=== PATIENT | female | born 1950 | race Caucasian/White ===

== ENCOUNTER → 2016-11-27 | Outpatient (CLI) | payer OTHER, MEDICARE ==
[~2016-11-27] MED LIST: CEPH500C PO; LEVO112T2 PO; LOSA1TAB38 PO; METO1TAB69 PO; OMEG10007 PO; TRIATAB3 PO
[2016-11-27 12:22] LABS: BASO % 0.4 %; BASO ABS # 0.03 K/uL (0-0.2); COMPLETE YES; EOS % 6.8 %; HEMATOCRIT 44.7 % (37-47); IG% 0.1 %; LYMPH % 31.1 %; LYMPH ABS # 2.23 K/uL (1.2-3.4); MEAN CELL VOLUME 95.3 fL (80-100); MEAN CORPUSCULAR HGB CONC 34.7 g/dl (32-36); MEAN PLATELET VOLUME 10.6 fL (7.4-10.4); MONO % 7.4 %; NEUT % 54.2 %; PLATELET COUNT 248 K/uL (130-400); RED BLOOD COUNT 4.69 M/uL (4.2-5.4); WHITE BLOOD COUNT 7.17 K/uL (4.8-10.8)
[2016-11-27 12:43] LABS: ALT/SGPT 56 U/L (12-78); AST/SGOT 26 U/L (15-37); BLOOD UREA NITROGEN 25 mg/dl (7-18); BUN/CREATININE RATIO 22.9 (10-20); CALCIUM 8.9 mg/dl (8.5-10.1); CARBON DIOXIDE 30 mmol/L (21-32); CHLORIDE 101 mmol/L (98-107); GLUCOSE 128 mg/dl (70-99); POTASSIUM 3.9 mmol/L (3.5-5.1); SODIUM 141 mmol/L (136-145); TRIGLYCERIDES 194 mg/dl (0-150); VERY LOW DENSITY LIPOPROT CALC 39 mg/dl
[2016-11-27 12:54] LABS: ALKALINE PHOSPHATASE 110 U/L (45-117); CHOLESTEROL 222 mg/dl (0-200); CHOLESTEROL/HDL RATIO 4.4; HDL CHOLESTEROL 51 mg/dl; LDL CHOLESTEROL CALCULATED 132 mg/dl
[2016-11-27 13:29] LABS: ESTIMATED AVERAGE GLUCOSE 126 mg/dl; HA1C FLAG Normal (Normal)
== END | disposition home or self-care (01) ==
LOC: C.LABBFT 09:51
PROVIDERS: ATTEND Internal Medicine
DX: R73.01 Impaired fasting glucose (principal)

== ENCOUNTER → 2017-02-21 | Outpatient (CLI) | payer OTHER, MEDICARE ==
[~2017-02-21] MED LIST changes: +METO100T44 PO; -METO1TAB69 PO
== END | disposition home or self-care (01) ==
LOC: C.PAPS 10:52
PROVIDERS: ATTEND Obstetrics & Gynecology
DX: Z12.4 Encounter for screening for malignant neoplasm of cervix (principal); R87.616 Satisfactory cervical smear but lacking transformation zone

== ENCOUNTER → 2017-05-18 | Outpatient (CLI) | payer OTHER, MEDICARE ==
[~2017-05-18] MED LIST changes: -CEPH500C PO; -METO100T44 PO; +METO1TAB69 PO
[2017-05-18 13:08] LABS: ALT/SGPT 48 U/L (12-78); AST/SGOT 24 U/L (15-37); BLOOD UREA NITROGEN 21 mg/dl (7-18); BUN/CREATININE RATIO 18.9 (10-20); CALCIUM 9.5 mg/dl (8.5-10.1); CARBON DIOXIDE 29 mmol/L (21-32); CHLORIDE 102 mmol/L (98-107); CHOLESTEROL 250 mg/dl (0-200); GLUCOSE 121 mg/dl (70-99); SODIUM 139 mmol/L (136-145); TRIGLYCERIDES 230 mg/dl (0-150); VERY LOW DENSITY LIPOPROT CALC 46 mg/dl
[2017-05-18 13:15] LABS: ESTIMATED AVERAGE GLUCOSE 134 mg/dl; HA1C FLAG Normal (Normal)
[2017-05-18 13:18] LABS: ALKALINE PHOSPHATASE 100 U/L (45-117); CHOLESTEROL/HDL RATIO 5.7; HDL CHOLESTEROL 44 mg/dl; LDL CHOLESTEROL CALCULATED 160 mg/dl
== END | disposition home or self-care (01) ==
LOC: C.LABBFT 08:06
PROVIDERS: ATTEND Internal Medicine
DX: E78.00 Pure hypercholesterolemia, unspecified (principal); E03.9 Hypothyroidism, unspecified; R73.01 Impaired fasting glucose; I10 Essential (primary) hypertension

== ENCOUNTER → 2017-06-11 | Outpatient (CLI) | payer OTHER, MEDICARE | END | disposition home or self-care (01) | LOC: C.PATHSPEC 17:23 | PROVIDERS: ATTEND Plastic Surgery | DX: L72.0 Epidermal cyst (principal) ==

== ENCOUNTER → 2017-11-27 | Outpatient (CLI) | payer OTHER, MEDICARE ==
[~2017-11-27] MED LIST changes: +METO100T44 PO; -METO1TAB69 PO
[2017-11-27 12:54] LABS: HEMOGLOBIN A1C 6.4 % (4.5-5.6)
[2017-11-27 13:13] LABS: ALBUMIN 3.8 gm/dl (3.4-5.0); ALKALINE PHOSPHATASE 104 U/L (45-117); ALT/SGPT 43 U/L (12-78); AST/SGOT 21 U/L (15-37); BLOOD UREA NITROGEN 25 mg/dl (7-18); CALCIUM 9.6 mg/dl (8.5-10.1); CARBON DIOXIDE 31 mmol/L (21-32); CHOLESTEROL 216 mg/dl (0-200); GLUCOSE 127 mg/dl (70-99); POTASSIUM 3.9 mmol/L (3.5-5.1); SODIUM 134 mmol/L (136-145); TOTAL PROTEIN 7.2 gm/dl (6.4-8.2)
[2017-11-27 13:23] LABS: LDL CHOLESTEROL CALCULATED 125 mg/dl
== END | disposition home or self-care (01) ==
LOC: C.LABBFT 08:56
PROVIDERS: ATTEND Internal Medicine
DX: E78.00 Pure hypercholesterolemia, unspecified (principal); R73.01 Impaired fasting glucose; E03.9 Hypothyroidism, unspecified

== ENCOUNTER → 2017-12-11 | Outpatient (CLI) | payer OTHER, MEDICARE ==
[~2017-12-11] MED LIST changes: +OPTIRAY 320 IV PRN
--- NOTE | 2017-12-11 16:03 | DIAGNOSTIC IMAGING REPORT ---
CT OF THE ABDOMEN AND PELVIS WITH CONTRAST CLINICAL HISTORY: Left lower quadrant pain and bloating. Diverticulitis. COMPARISON STUDY: CT of the abdomen March 14, 2013. TECHNIQUE: Following IV administration of 93 mL of Optiray-320, axial images of the abdomen and pelvis were obtained from the lung bases to the proximal femurs. Images were reviewed in the axial, sagittal, and coronal planes. IV contrast was administered without complication. A dose lowering technique was utilized adhering to the principles of ALARA. Oral contrast was administered. CT DOSE: 987.05 mGycm FINDINGS: Visualized portions of the lower chest demonstrate innumerable small pulmonary nodules which are similar to CT of March 14, 2013. A few hepatic lesions which demonstrate nodular peripheral enhancement are unchanged since prior exams and consistent with hemangiomas. There is no biliary or pancreatic ductal dilatation. Apparent postoperative findings involving the pancreatic body and tail are unchanged. The postoperative appearance is similar to prior exam. Note is made of adenomyomatosis of the gallbladder fundus. There is no evidence for acute cholecystitis. There is no peripancreatic infiltration. No enlarged abdominal or pelvic lymph nodes are noted. A small hiatal hernia is present. There is no hydronephrosis. The spleen, adrenal glands and pancreas are unremarkable. Tiny bilateral adrenal nodules are unchanged. These are benign. There is no hydronephrosis. The caliber and wall thickness of small and large bowel are normal. The appendix is normal. A suspected 1.6 cm fundal fibroid is noted. There is sigmoid diverticulosis without evidence for acute diverticulitis. The ovaries are not enlarged. There are no suspicious osseous lesions. IMPRESSION: 1. No acute process within the abdomen or pelvis. 2. Sigmoid diverticulosis without evidence for acute diverticulitis. 3. No change in innumerable pulmonary nodules within visualized portions of the lower lungs since CT of March 14, 2013. 4. Stable appearance of the pancreas with apparent postsurgical changes. Electronically signed by: Montrell Cano M.D. 12/11/2017 4:01 PM Dictated Date/Time: 12/11/2017 3:50 PM
== END | disposition home or self-care (01) ==
LOC: C.CTS 15:08
PROVIDERS: ATTEND Internal Medicine
DX: K57.30 Diverticulosis of large intestine without perforation or abscess without bleeding (principal); R10.32 Left lower quadrant pain; R91.8 Other nonspecific abnormal finding of lung field

== ENCOUNTER → 2017-12-14 | Outpatient (CLI) | payer OTHER, MEDICARE ==
[~2017-12-14] MED LIST changes: -OPTIRAY 320 IV PRN
== END | disposition home or self-care (01) ==
LOC: C.LABBFT 10:24
PROVIDERS: ATTEND Internal Medicine
DX: G62.9 Polyneuropathy, unspecified (principal)

== ENCOUNTER 2018-01-26 05:03 | Emergency (ER) | payer OTHER, MEDICARE ==
[~2018-01-26] VITALS: Ht 175.3 cm; Wt 92.2 kg
[2018-01-26 05:08] VITALS: TEMP 36.4; Ht 175.3 cm; Wt 92.2 kg
[2018-01-26 05:35] VITALS: BP 132/72; PULSE 60; O2SAT 99
[2018-01-26] MEDS ORDERED: NAPR-1169 PO (06:19)
--- NOTE | 2018-01-26 08:06 | EMERGENCY ROOM VISIT NOTE ---
History Report prepared by Pierce: Fiordaliza Isidro Under the Supervision of: Dr. Soledad Rivas D.O. First contact with patient: 05:16 Chief Complaint: BLEEDING Stated Complaint: BLEEDING FROM BOIL LIKE History of Present Illness The patient is a 67 year old female who presents to the Emergency Room with complaints of an episode of bleeding starting prior to arrival. The patient states that she noticed a hard area in right groin two days ago. This was noted to be slightly painful. She reports that there was a tiny tinge of blood there last night, but woke up this morning and there was blood everywhere. She reports that the blood was on her pajamas, on the sheets, and in the toilet. The patient denies ever having any abscess in her groin area before. The patient denies being a diabetic. Source of History: patient Onset: prior to arrival Position: other (global) Quality: other (bleeding) Timing: other (episode) Note: The patient complains of a hard lump. Review of Systems See HPI for pertinent positives & negatives. A total of 10 systems reviewed and were otherwise negative. Past Medical & Surgical The patient denies diabetes She has a history of hypertension and hypothyroidism. Family History No pertinent family history Social History Smoking Status: Never Smoker Marital Status: Housing Status: lives with family Current/Historical Medications Scheduled Fish Oil ([place]-3), 2,400 MG PO DAILY Levothyroxine Sodium (Synthroid), 112 MCG PO DAILY Losartan Potassium (Cozaar), 100 MG PO DAILY Metoprolol Succ (Toprol Xl) (Toprol-Xl ), 100 MG PO DAILY Triamterene/Hctz (Triamterene/Hctz 37.5-25MG), 1 TAB PO BID Scheduled PRN Naproxen (Naprosyn), 500 MG PO BID PRN for Pain Allergies Coded Allergies: Molds and Smuts (Verified Allergy, Unknown, ., 10/27/15) Statins (Verified Allergy, Unknown, ELEVATED LFT'S, 10/27/15) Uncoded Allergies: MOLDS (Allergy, Unknown, 12/25/02) Physical Exam Vital Signs Date Time Temp Pulse Resp B/P (MAP) Pulse Ox O2 Delivery O2 Flow Rate FiO2 01/26/18 05:35 60 16 132/72 99 Room Air 01/26/18 05:08 36.4 68 18 147/85 97 Room Air Physical Exam Perineum: There was a palpable area of induration and probable abscess just to the right of the posterior labia. There was an opening the size of a match head which was draining a serosanguineous fluid with some possible pus. There was no surrounding erythema to suggest cellulitis. There is no evidence of Laura's gangrene. This did not involve the labia. There is no discharge noted from the vagina or rectum. Medical Decision & Procedures ED Course 0518: Past medical records reviewed. The patient was evaluated in room B10. A complete history and physical exam was performed. I discussed possible causes of this drainage and suggested a treatment plan. She verbalized agreement of the treatment plan. The patient was discharged home. Medical Decision The patient is a 67 year old female who presents to the Emergency Room with complaints of an episode of bleeding starting prior to arrival. Differential diagnoses include Bartholin cyst, abscess of the perineum, rectal fistula, perirectal abscess. This is a 59-year-old female patient who presents to the emergency department with a painful area in her perineum that is now draining a bloody fluid. It appears that she has a skin abscess in that area with an opening that is successfully draining both blood and a small amount of pus. There are no surrounding cellulitic changes. There is some slight induration which is painful to palpation. I encouraged the patient to do warm soaks or sitz baths and monitor this area closely. I discouraged extended periods of sitting or standing. She was encouraged to return to the emergency department immediately if she developed increased pelvic pain or rectal pain. I also encouraged her to come back if she developed a fever. We talked about the possibility of a fistula but I do not believe that is what has occurred here I believe that this is a skin abscess that is currently draining. Medication Reconcilliation Current Medication List: was personally reviewed by me Blood Pressure Screening Patient's blood pressure: Elevated blood pressure Blood pressure disposition: Elevated BP felt to be situational Impression Primary Impression: Perineal abscess Scribe Attestation The scribe's documentation has been prepared under my direction and personally reviewed by me in its entirety. I confirm that the note above accurately reflects all work, treatment, procedures, and medical decision making performed by me. Departure Information Dispostion Home / Self-Care Referrals Jorge Mi M.D. (PCP) Forms HOME CARE DOCUMENTATION FORM, IMPORTANT VISIT INFORMATION Patient Instructions My [facility] [place] [facility] [employer] Additional Instructions Rest. Avoid sitting or standing for long periods of time. Do sitz bath twice a day Follow up with obstetrics gyn on Sunday for a recheck. Return here to the ER if you develop worsening symptoms like fever or pelvic pain
== END 2018-01-26 06:20 | disposition home or self-care (01) ==
LOC: C.EDB 05:04
DX: L02.215 Cutaneous abscess of perineum (principal); I10 Essential (primary) hypertension; E03.9 Hypothyroidism, unspecified; Z79.899 Other long term (current) drug therapy

== ENCOUNTER → 2018-03-18 | Outpatient (CLI) | payer OTHER, MEDICARE ==
[~2018-03-18] MED LIST changes: +NAPR-1169 PO
--- NOTE | 2018-03-19 15:13 | MAMMOGRAPHY REPORT ---
BILATERAL DIGITAL SCREENING MAMMOGRAM TOMOSYNTHESIS WITH CAD: 03/18/2018 CLINICAL HISTORY: Routine screening. Patient has no complaints. TECHNIQUE: Breast tomosynthesis in addition to standard 2D mammography was performed. Current study was also evaluated with a Computer Aided Detection (CAD) system. COMPARISON: Comparison is made to exams dated: 03/15/2017 mammogram, 02/02/2016 mammogram, 01/12/2015 dirk mogram, 11/20/2013 mammogram, 11/15/2012 mammogram, and 11/14/2011 mammogram - [facility] . BREAST COMPOSITION: There are scattered areas of fibroglandular density in both breasts. FINDINGS: The parenchymal pattern is unchanged. No developing mass, architectural distortion or clus ter of suspicious microcalcifications is seen in either breast. IMPRESSION: ACR BI-RADS CATEGORY 2: BENIGN There is no mammographic evidence of malignancy. A 1 year screening mammogram is recommended. The pa tient will receive written notification of the results. Approximately 10% of breast cancers are not detected with mammography. A negative mammographic report should not delay biopsy if a clinically suggestive mass is present. Chrissy Wallis M.D. ay/:03/18/2018 16:09:17 Computational Linguist: Sabine RODAS(Ayanna)(Nahun), [facility] letter sent: Normal 1/2 BI-RADS Code: ACR BI-RADS Category 2: Benign
== END | disposition home or self-care (01) ==
LOC: C.MAMM 09:25
PROVIDERS: ATTEND Obstetrics & Gynecology
DX: Z12.31 Encounter for screening mammogram for malignant neoplasm of breast (principal); Z91.040 Latex allergy status

== ENCOUNTER → 2018-05-31 | Outpatient (CLI) | payer OTHER, MEDICARE ==
[~2018-05-31] MED LIST changes: -NAPR-1169 PO; +NAPR-22 PO
[2018-05-31 12:46] LABS: HEMOGLOBIN A1C 6.3 % (4.5-5.6)
[2018-05-31 13:07] LABS: ALBUMIN 3.6 gm/dl (3.4-5.0); ALKALINE PHOSPHATASE 105 U/L (45-117); ALT/SGPT 36 U/L (12-78); AST/SGOT 16 U/L (15-37); BLOOD UREA NITROGEN 33 mg/dl (7-18); CALCIUM 8.9 mg/dl (8.5-10.1); CARBON DIOXIDE 30 mmol/L (21-32); CHOLESTEROL 226 mg/dl (0-200); CREATININE 1.07 mg/dl (0.60-1.20); GLUCOSE 154 mg/dl (70-99); LDL CHOLESTEROL CALCULATED 152 mg/dl; POTASSIUM 3.6 mmol/L (3.5-5.1); SODIUM 137 mmol/L (136-145); TOTAL PROTEIN 7.2 gm/dl (6.4-8.2)
== END | disposition home or self-care (01) ==
LOC: C.LABBFT 08:12
PROVIDERS: ATTEND Internal Medicine
DX: E78.00 Pure hypercholesterolemia, unspecified (principal); E03.9 Hypothyroidism, unspecified; R73.01 Impaired fasting glucose

== ENCOUNTER 2020-07-14 06:44 | Observation (INO) ==
--- NOTE | 2020-07-02 13:35 | PAT Medication Instructions ---
Medication Instructions Date of Service July 02, 2020 Home Medications Medication Instructions Recorded losartan 100 mg tablet 100 mg PO DAILY #90 tab 10/13/19 levothyroxine 100 mcg tablet 100 mcg PO DAILY #90 tab 03/29/20 metoprolol succinate 100 mg 100 mg PO DAILY #90 tab 03/29/20 tablet,extended release 24 hr triamterene 37.5 1 tab PO BID #180 tab 03/29/20 mg-hydrochlorothiazide 25 mg tablet losartan 100 mg tablet 100 mg PO DAILY levothyroxine 100 mcg tablet 100 mcg PO DAILY metoprolol succinate 100 mg tablet,extended release 24 hr 100 mg PO DAILY triamterene 37.5 mg-hydrochlorothiazide 25 mg tablet 1 tab PO BID omega-3 fatty acids-fish oil [[place] 3 Fish Oil] 2 cap PO QAM STOP taking 2 weeks before surgery (or as soon as possible if surgery is within 2 weeks) omega-3 fatty acids-fish oil [[place] 3 Fish Oil] 2 cap PO QAM DO NOT take the morning of surgery losartan 100 mg tablet 100 mg PO DAILY triamterene 37.5 mg-hydrochlorothiazide 25 mg tablet 1 tab PO BID Take morning of surgery With a small sip of water, OTHERWISE NOTHING TO EAT OR DRINK AFTER MIDNIGHT: levothyroxine 100 mcg tablet 100 mcg PO DAILY metoprolol succinate 100 mg tablet,extended release 24 hr 100 mg PO DAILY Other Notes If you have any questions please call us at [phone] or [phone] or [phone] or [phone]
--- NOTE | 2020-07-05 13:19 | PAT Medication Instructions ---
Medication Instructions Date of Service July 05, 2020 Home Medications Medication Instructions Recorded levothyroxine 100 mcg tablet 100 mcg PO DAILY #90 tab 03/29/20 triamterene 37.5 1 tab PO BID #180 tab 20 mg-hydrochlorothiazide 25 mg tablet levothyroxine 100 mcg tablet 100 mcg PO QAM triamterene 37.5 mg-hydrochlorothiazide 25 mg tablet 1 tab PO BID omega-3 fatty acids-fish oil [[place] 3 Fish Oil] 2 cap PO QAM losartan 100 mg PO QPM metoprolol succinate 100 mg PO QPM STOP taking 2 weeks before surgery If surgery is within 2 weeks, stop taking as soon as possible. omega-3 fatty acids-fish oil [[place] 3 Fish Oil] 2 cap PO QAM DO NOT take the morning of surgery triamterene 37.5 mg-hydrochlorothiazide 25 mg tablet 1 tab PO BID Take morning of surgery With a small sip of water, OTHERWISE NOTHING TO EAT OR DRINK AFTER MIDNIGHT: levothyroxine 100 mcg tablet 100 mcg PO QAM Take evening before surgery triamterene 37.5 mg-hydrochlorothiazide 25 mg tablet 1 tab PO BID losartan 100 mg PO QPM metoprolol succinate 100 mg PO QPM Other Notes If you have any questions please call us at [phone] or [phone] or [phone] or [phone]
--- NOTE | 2020-07-05 13:28 | Anesthesiology Consultation ---
Date of Service July 05, 2020 Assessment & Plan (1) Encounter for pre-operative examination: COVID Status: As of 07/05 assessment, patient denies travel to endemic area, known exposure/sick contacts, or symptoms of COVID19. Patient instructed that they and their household members must follow strict social distancing guidelines, wear a mask in public and avoid travel for 14 days prior to surgery. Preoperative COVID19 testing to be completed prior to surgery per surgeon's arra ngements. Patient made aware to self-isolate as much as possible between COVID testing and surgery. PCP Clearance 06/16/20 = "Reviewed recent labs with patient, stable and acce ptable. IFG, hypothyroidism, hypertension and hypercholesterolemia seem stable. No medical contraindication to upcoming planned right total knee arthroplasty" Chart Review Chart Review: Acceptable Risk for Surgery and Patient seen in Pre Admission Testing Teaching & Discussion Instructed NPO after midnight before surgery, except medications with 15 cc of water. Medication instructions provided according to the PAT guidelines. History Surgery Operation Date: 07/14/20 08:50 Proposed Procedures p Right Total Knee Arthroplasty - Alex Alexander MD Height/Weight Height: 5 ft 9.5 in Weight: 84 kg Allergies Allergy/AdvReac Type Severity Reaction Status Date / Time ezetimibe [From Zetia] Allergy Intermediate ELEVATED Verified 07/01/20 09:22 LFTS Zeymdyl-Kxg-Pcu Reductase Allergy Intermediate ELEVATED Verified 07/01/20 09:22 Inhibitor LFT'S mold Allergy Mild CONGESTION Verified 07/01/20 09:22 lisinopril Allergy Unknown PT DOES Verified 07/01/20 09:23 NOT RECOGNIZE ALLERGY Medications Home Medications Medication Instructions Recorded Confirmed Last Taken levothyroxine 100 mcg tablet 100 mcg PO DAILY #90 tab 03/29/20 07/01/20 Unknown triamterene 37.5 1 tab PO BID #180 tab 03/29/20 07/01/20 Unknown mg-hydrochlorothiazide 25 mg tablet omega-3 fatty acids-fish oil 2 cap PO QAM 07/01/20 07/01/20 Unknown [[place] 3 Fish Oil] losartan 100 mg PO QPM 07/05/20 07/05/20 Unknown metoprolol succinate 100 mg PO QPM 07/05/20 07/05/20 Unknown Past Medical History Medical History Cystadenoma of pancreas BENIGN Degenerative disc disease Environmental allergies Hypercholesterolemia Hypertension Hypothyroidism Lung nodules BENIGN (MONITORED IN PAST) Osteoarthritis Prediabetes Exercise / Class Metabolic Activity II 4-5 Yardwork/Stairs/Walk up hill Past Family History Family History Mother Cancer Father Gastric cancer Brother Cardiac disorder Family/Other Hypertension Denies family history of Ovarian cancer Breast cancer Past Surgical History Surgical History History of colonoscopy (~08/05/13) History of lumbar discectomy History of pancreatic surgery 2000- tumor resected History of tonsillectomy [place] teeth removed Past Anesthesia History No Hx of Anesthesia Complications and No Family Hx of Anesthesia Complications History of PONV No Hx of PONV and No Hx of Motion Sickness Social History Smoking Status: Never smoker Do You Dip or Chew Tobacco: No Hx Alcohol Use: Yes alcohol intake frequency: holidays/special occasions only Hx Substance Use: No Review of Systems Pt denies any recent chest pain, shortness of breath, palpitations, cough, fever, URI, or uncontrolled acid reflux. Physical Exam Vital Signs BP: 121/70 P: 52bpm SPO2: 95% RA T: 98.9 F R: 16 Constitutional Anxious. ENMT Mouth: + dental restorations (Crowns on molars); no chipped teeth and no loose teeth Thyromental Distance: > or= 3.5 Finger Breadths Mallampati Class: I Neck normal visual inspection and + limited neck extension (mildly) Respiratory normal respiratory effort Auscultation: lungs clear to auscultation bilaterally Cardiovascular Rate/Rhythm: regular rhythm and + bradycardic Heart Sounds: no murmur Extremities: no edema Testing Laboratory Results 07/05/20 13:40 07/05/20 13:40 PT 11.0 Seconds (9.0-12.0) 07/05/20 13:40 INR 1.0 (0.9-1.1) 07/05/20 13:40 APTT 28.9 Seconds (21.0-31.0) 07/05/20 13:40 Urine Color Yellow 07/05/20 13:40 Urine Appearance Clear (Clear) 07/05/20 13:40 Urine pH 5.5 (4.5-7.5) 07/05/20 13:40 Ur Specific [place] 1.014 (1.000-1.030) 07/05/20 13:40 Urine Protein Negative (Negative) 07/05/20 13:40 Urine Glucose (UA) Negative (Negative) 07/05/20 13:40 Urine Ketones Negative (Negative) 07/05/20 13:40 Urine Nitrite Negative (Negative) 07/05/20 13:40 Ur Leukocyte Esterase Trace (Negative) H 07/05/20 13:40 Urine WBC (Auto) 1-5 /hpf (0-5) 07/05/20 13:40 Urine RBC (Auto) 0-4 /hpf (0-4) 07/05/20 13:40 U Hyaline Cast (Auto) 0 /lpf (0-5) 07/05/20 13:40 U Epithel Cells (Auto) >30 /lpf (0-5) H 07/05/20 13:40 Urine Bacteria (Auto) Negative (Negative) 07/05/20 13:40 Blood Type O Negative 07/05/20 13:40 Antibody Screen NEGATIVE 07/05/20 13:40 Electrocardiogram Date: 07/05/20 Findings: + SB @ (55bpm with 1st degree AV block) Left anterior fascicular block. Compared with EKG of 08/22/2001, RI interval has increased, left anterior fascicular block is now present. Chest X-Ray Date: 07/05/20 Findings: + NAD
--- NOTE | 2020-07-05 14:18 | XRay Report ---
XR chest Pre-admission PA/Lat CLINICAL HISTORY: Preoperative chest COMPARISON STUDY: Chest CT performed July 2014 FINDINGS: The cardiac and mediastinal contours are normal. There is no evidence of focal pulmonary co nsolidation. There is no evidence of failure. No pleural effusions are visualized.[ IMPRESSION: No active disease in the chest. ACT 112: Negative or not required by law. Electronically signed by: Phil Turcios M.D. 07/05/2020 2:16 PM
[2020-07-05 14:40] LABS: Basophils # (auto) 0.02 K/uL (0-0.2); Basophils % (auto) 0.3 %; Eosinophils % (auto) 4.1 %; Hematocrit (blood only) 45.6 % (37-47); Hemoglobin 15.6 g/dL (12.0-16.0); Immature Granulocytes # (auto) 0.01 K/uL (0.00-0.02); Immature Granulocytes % (auto) 0.1 %; Lymphocytes # (auto) 1.96 K/uL (1.2-3.4); Lymphocytes % (auto) 26.6 %; Mean Corpuscular Hemoglobin 32.8 pg (25-34); Mean Corpuscular Hgb Conc 34.2 g/dL (32-36); Mean Platelet Volume 10.5 fL (7.4-10.4); Monocytes # (auto) 0.57 K/uL (0.11-0.59); Monocytes % (auto) 7.7 %; Neutrophils % (auto) 61.2 %; Platelet Count 222 K/uL (130-400); RDW Coefficient of Variation 12.8 % (11.5-14.5); RDW Standard Deviation 44.4 fL (36.4-46.3); Red Blood Count 4.75 M/uL (4.2-5.4); White Blood Count 7.36 K/uL (4.8-10.8)
[2020-07-05 14:41] LABS: Appearance Urine Clear (Clear); Bacteria Urine Automated Negative (Negative); Bilirubin Urine Negative (Negative); Blood Urine Negative (Negative); Cast Urine Automated 0 /lpf (0-5); Color Urine Yellow; Epithelial Cell Urine Auto >30 /lpf (0-5); Glucose Urine UA Negative (Negative); Ketones Urine Negative (Negative); Leukocyte Esterase Urine Trace (Negative); Nitrite Urine Negative (Negative); Protein Urine Negative (Negative); RBC Urine Automated 0-4 /hpf (0-4); Specific Gravity Urine 1.014 (1.000-1.030); Urobilinogen Urine Negative (Negative); pH Urine 5.5 (4.5-7.5)
[2020-07-05 14:46] LABS: BUN Creatinine Ratio 26.7 (10-20); Calcium 8.9 mg/dl (8.5-10.1); Creatinine Clr Calc Pharmacy 66.2 ml/min; Est GFR (African American) 73.6; Est GFR (Non-African American) 63.5; Potassium 3.6 mmol/L (3.5-5.1)
[2020-07-05 14:50] LABS: Partial Thromboplastin Time 28.9 Seconds (21.0-31.0)
--- NOTE | 2020-07-05 15:35 | Electrocardiogram Report ---
Test Reason : Blood Pressure : / mmHG Vent. Rate : 055 BPM Atrial Rate : 055 BPM P-R Int : 218 ms QRS Dur : 086 ms QT Int : 466 ms P-R-T Axes : 078 -57 048 degrees QTc Int : 445 ms Sinus bradycardia with 1st degree A-V block Left anterior fascicular block Abnormal ECG When compared with ECG of 22-AUG-2001 16:08, NM interval has increased Left anterior fascicular block is now Present Confirmed by Aubrey Llamas ([id number]) on 07/05/2020 3:34:39 PM Referred By: Alex Alexander Confirmed By:Aubrey Llamas
--- NOTE | 2020-07-13 10:33 | History & Physical Report ---
Date of Service July 13, 2020 Assessment & Plan (1) Right knee DJD: Postoperative prescription for Percocet and Coumadin will be provided at discharge from the hospital. Anticipate discharge to home with home health services. She has already seen her PCP for medical clearance. Preoperative lab work, EKG, and chest x-ray have been ordered for today. Preoperative COVID testing has also been ordered. The patient is aware of the COVID-19 risks associated with surgery. She is currently asymptomatic of any COVID-19 symptoms. Nasal swab testing will be obtained prior to surgery. PDMP was checked and there are no concerning findings. Postoperative surgical visit has been made for 07/29 at 1:30 p.m. History of Present Illness Chief Complaint: Right knee pain Primary Care Provider: Jorge Mi MD This 70-year-old white female presents today for a longstanding history of right knee pain. She is scheduled to undergo a right knee total knee arthroplasty on 07/14/2020. She has been seen in the office for several years with reasonable medical management using cortisone injections and viscosupplementation injections in the right knee. Pain has become worse with time. She feels the injections are no longer helping. She is having difficulty with ambulation. Pain is worse with weightbearing. Pain is affecting her ADLs. She denies any catching or locking. No buckling. She does note a deformity of her knees that seems to be advancing with time. Preoperative imaging has been obtained. She elects to proceed with surgical intervention in hopes of improving her function. Allergies Allergy/AdvReac Type Severity Reaction Status Date / Time ezetimibe [From Zetia] Allergy Intermediate ELEVATED Verified 07/01/20 09:22 LFTS Wwkyxsf-Pky-Efy Reductase Allergy Intermediate ELEVATED Verified 07/01/20 09:22 Inhibitor LFT'S mold Allergy Mild CONGESTION Verified 07/01/20 09:22 lisinopril Allergy Unknown PT DOES Verified 07/01/20 09:23 NOT RECOGNIZE ALLERGY Home Medications Home Medications Medication Instructions Recorded Confirmed Type levothyroxine 100 mcg tablet 100 mcg PO DAILY #90 tab 03/29/20 07/01/20 Rx triamterene 37.5 1 tab PO BID #180 tab 03/29/20 07/01/20 Rx mg-hydrochlorothiazide 25 mg tablet omega-3 fatty acids-fish oil 2 cap PO QAM 07/01/20 07/01/20 History [[place] 3 Fish Oil] losartan 100 mg PO QPM 07/05/20 07/05/20 History metoprolol succinate 100 mg PO QPM 07/05/20 07/05/20 History Past Med/Surg History Medical History Cystadenoma of pancreas BENIGN Degenerative disc disease Environmental allergies Hypercholesterolemia Hypertension Hypothyroidism Lung nodules BENIGN (MONITORED IN PAST) Osteoarthritis Prediabetes Surgical History History of colonoscopy (~08/05/13) History of lumbar discectomy History of pancreatic surgery 2000- tumor resected History of tonsillectomy [place] teeth removed Family History Mother Cancer Father Gastric cancer Brother Cardiac disorder Family/Other Hypertension Denies family history of Ovarian cancer Breast cancer Social History Smoking Status: Never smoker Second Hand Exposure: Yes ( A CHILD); Hx Alcohol Use: Yes Hx Substance Use: No Preferred Language: Belarusian Sole Layer Hand Required: No Beliefs That Will Affect Care: None marital status: Current Living Situation: Spouse current occupational status: retired Feels Safe at Home: Yes Physical Activity Frequency: Other Physical Activity Frequency Comment: regularly Sunscreen Use: Yes Review of Systems Review of Systems: All systems reviewed & are unremarkable except as noted in HPI & below A total of 10 systems were reviewed. Physical Exam Physical Exam: Vitals: Height 174 cm, weight 84 kg. BMI 27.7, temperature 36.3 oral, BP 140/68, pulse is 51, O2 sat 98% on room air. General: Well-deve loped, well-nourished, elderly white female in no acute distress. Sitting in a chair. Alert and oriented. Skin: Warm and dry with good turgor. No rashes or lesions. No ecchymosis or erythema. HEENT: Normocephalic, atraumatic. Eyes: PERRLA, EOMI. Nares and oropharynx exams deferred due to COVID precautions. Heart: Bradycardic, regular rhythm, no MGR. Lungs: Clear to auscultation bilaterally, no crackles, rhonchi or wheezing, good air movement. Abdomen: Bowel sounds present x4, soft, nontender. No organomegaly. No masses. Musculoskeletal: Right knee evaluation reveals no intraarticular effusion. No redness or warmth. Full terminal extension. Flexion to only 95 degrees. Strength is 5/5 with fair quad tone. Stable collateral ligaments. No defect in the patellar tendon or quadriceps tendon. No palpable crepitus with motion. She does have a valgus stance. Ambulates with a slightly antalgic gait without a cane. Neurologic: Gross sensation is intact across both lower extremities by soft touch. Peripheral pulses are 2+. Results & Data Results & Data ([facility]) Diagnostic Findings Radiographic imaging previously obtained shows endstage DJD of the right knee with periarticular osteophytes, subchondral sclerosis, and joint space narrowing, all present.
[~2020-07-14 06:44] MED LIST changes: +CEFAZOLIN 2000MG 2,000 MG/15 ML SYR IV SCH; -LEVO112T2 PO; -LOSA1TAB38 PO; +LR 500ML BOLUS, THEN 15ML/HR IV SCH; +LR 60ML/HR IV SCH; -METO100T44 PO; -NAPR-22 PO; -OMEG10007 PO; +ROPIVACAINE 0.5% HCL/PF 150 MG, BUPIVACAINE 0.5% MPF 30 ML, EPINEPHrine 0.15 MG, Ketoro... INFIL SCH; +TRANEXAMIC ACID 1,000 MG **IV Pre-op IV SCH; -TRIATAB3 PO
--- NOTE | 2020-07-14 06:45 | History & Physical Bridge Note ---
Date of Service July 14, 2020 History & Physical Bridge Note I have examined the patient, reviewed the History & Physical and in the interval since the performance of the History & Physical I have noted the following changes of clinical significance: covid screen negative.no changes noted
--- NOTE | 2020-07-14 06:56 | History & Physical Bridge Note ---
Date of Service July 14, 2020 History & Physical Bridge Note I have examined the patient, reviewed the History & Physical and in the interval since the performance of the History & Physical I have noted the following changes of clinical significance:site marked/consent obtained. no changes noted
[2020-07-14] MEDS ORDERED: BUPIVACAINE 0.5 % 5 MG/1 ML PF 10ML VIAL ONE (07:21)
[2020-07-14] MEDS ORDERED: ROPIVACAINE 0.5% 5 MG/ML 30 ML VIAL ONE (07:21)
[2020-07-14] MEDS ORDERED: MIDAZOLAM HCL 1 MG/ML 2ML VIAL ONE ×2 (08:07)
[2020-07-14] MEDS ORDERED: PROPOFOL IV EMULSION 10 MG/ML 20 ML VIAL IV ONE (08:18)
[2020-07-14] MEDS ORDERED: ePHEDrine sulfate 50 MG/ML AMP IV PRN (08:22)
[2020-07-14] MEDS ORDERED: KETOROLAC 30 MG/ML VIAL IV PRN (08:22)
[2020-07-14] MEDS ORDERED: ATROPINE SULFATE 0.1 MG/ML 10ML SYR IV PRN (08:22)
[2020-07-14] MEDS ORDERED: ONDANSETRON INJ 2 MG/ML 2 ML VIAL IV PRN ×2 (08:22→12:39)
[2020-07-14] MEDS ORDERED: HYDROmorphone INJ 1 MG/ML SYRINGE IV PRN (08:22)
[2020-07-14] MEDS ORDERED: ORTHO JOINT ANESTHETIC ONE (08:47)
--- NOTE | 2020-07-14 10:33 | Post Operative Brief Note ---
Immediate Post Op Note v1 Date of Surgery July 14, 2020 Pre & Post Diagnosis Operation Date: 07/14/20 08:50 Pre-Op Diagnosis: Right Knee Degenerative Joint Disease Post-Op Diagnosis: Right Knee Degenerative Joint Disease I identified the patient and participated in the time-out.: Yes Procedure Operation Date: 07/14/20 08:50 Actual Procedures p Right Total Knee Arthroplasty(Right) - Alex Alexander MD Surgeon Alex Alexander MD Rn Medication linda/shae/artis Estimated Blood Loss 50 Findings Consistent with Post-Op Diagnosis
--- NOTE | 2020-07-14 10:43 | Operative Report ---
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 She had tried conservative care measures without improvement. She elected to proceed with surgical intervention after being educated about potential risks and outcomes. Preoperative imaging was obtained. Description of Procedure Patient was administered a spinal anesthetic and then taken to the operating room where she was given sedation. She was prepped and draped in the usual sterile fashion. Please see Dr. Alexander's operative report for specifics of the procedure. I was present for the entire case from initial patient positioning through final wound closure. Assistance was provided in tissue retraction, hemostasis, trial implant placement, final implant placement, and final wound closure. Patient was taken to the recovery room in satisfactory condition. I attest to the content of the Intraoperative Record and any orders documented therein. Any exceptions are noted below.
--- NOTE | 2020-07-14 10:51 | Operative Report (OR) ---
DATE OF OPERATION: 07/14/2020 SURGEON: Alex Alexander MD. CARTON REPAIRER: Leann. SECOND CARTON REPAIRER: Richy Arreola PA-C. THIRD CARTON REPAIRER: Vida. PREOPERATIVE DIAGNOSIS: Valgus deformity of right knee with severe lateral compartment osteoarthritis. POSTOPERATIVE DIAGNOSIS: Valgus deformity of right knee with severe lateral compartment osteoarthritis. OPERATION PERFORMED: Cemented right total knee replacement. SUMMARY OF IMPLANTS: Right 3 femoral component, posterior cruciate substituting right mobile bearing tray, oval dome 3 peg patella size 38, insert 3 x 10 mm posterior cruciate substituting, 2 bags of Palacos G cement. BONE PATHOLOGY: Pending. DEEP VEIN THROMBOSIS PROPHYLAXIS: Per protocol. ESTIMATED BLOOD LOSS: 50 mL. CRYSTALLOID: Per Anesthesia. PERIOPERATIVE SITUATION: Medically cleared female with intractable knee pain, wants to proceed with surgical treatment. She understands the risks and consequences. DESCRIPTION OF PROCEDURE: After the patient was appropriately identified, site verified, consent verified, antibiotics confirmed as being given, the right lower extremity was prepped and draped in usual routine fashion. Tourniquet inflated to 300 mmHg after exsanguination of the limb with a rubber Esmarch bandage for a total of 51 minutes. Midline exposure was utilized. Parapatellar arthrotomy performed. Synovectomy completed, osteophytes resected. Distal femur then entered. Distal femur resected 12 mm. Proximal tibia then subluxated after the cruciates were completely released and the menisci resected. The proximal tibia resected 4 mm, the extension gap was excellent. Femur was then sized between a 3 and a 2.5, so it was measured 3, cut 3 and everything looked good. Once that was done, the flexion gap was checked. It was excellent. Posterior capsule was then injected with Orthomix. The box cut was then made and the size 3 fit well. The tibia was then subluxated and then broached and reamed to a size 3 and a 10 spacer made the knee stable in all planes including mid range flexion. The patella tracked well. The patella was resected leaving 15 mm and then a size 38 button was placed after the seating holes made. It tracked well. Orthomix was then injected all around the knee. The trial implants were then removed. The knee was irrigated with Betadine and Pulsavac and then cemented into position, tibia, femur and patella in that order. After 12 minutes, the tourniquet was deflated. Minor bleeding points controlled with electrocautery. After 14 minutes, knee flexed. Minor cement removal required on the femur, none on the tibia. The trial implant was removed on the tibia. The wound was irrigated and then permanent liner seated. The knee reduced and closed at 40 degrees of flexion with #2 Vicryl, 2-0 Vicryl and stainless steel clips. Appropriate dressing applied and the patient was transferred to the recovery room in satisfactory condition having tolerated the procedure well. I attest to the content of the Intraoperative Record and any orders documented therein. Any exception s are noted below.
[2020-07-14] MEDS ORDERED: ePHEDrine sulfate 50 MG/ML SYR ONE (10:52)
--- NOTE | 2020-07-14 11:21 | XRay Report ---
XR knee RT 1 or 2V routine CLINICAL HISTORY: Postop knee arthroplasty COMPARISON: None. DISCUSSION: There are postsurgical changes of total right knee arthroplasty and patellar resurfacing. The femoral and tibial components appear well seated. There is gas present within the soft tissues. There are overlying skin rocio. There are no acute fractures. IMPRESSION: Postsurgical changes of a total right knee arthroplasty ACT 112: Negative or not required by law. Electronically signed by: Phil Turcios M.D. 07/14/2020 11:19 AM
--- NOTE | 2020-07-14 12:23 | Anesthesiology Progress Note ---
Date of Service July 14, 2020 Anesthesia Post Procedure Vital Signs Vital Signs: Temp Pulse Pulse Resp BP Pulse Ox 07/14/20 12:15 51 L 19 124/58 L 97 07/14/20 12:05 49 L 15 119/58 L 97 07/14/20 11:55 51 L 18 125/57 L 99 07/14/20 11:45 50 L 15 124/61 98 07/14/20 11:35 52 L 19 128/59 L 99 07/14/20 11:25 54 L 19 114/59 L 99 07/14/20 11:15 49 L 15 117/59 L 99 07/14/20 11:05 50 L 17 113/58 L 98 07/14/20 10:55 56 L 23 116/58 L 98 07/14/20 10:45 36.3 C L 64 24 107/58 L 97 07/14/20 08:00 52 L 20 115/54 L 94 07/14/20 07:11 36.4 C L 54 L 18 143/72 H 97 Transfer of Care Handoff Completed per policy Notes Mental Status: alert / awake / arousable Patient Amnestic to Procedure: Yes Nausea / Vomiting: adequately controlled Pain: adequately controlled Airway Patency, RR, SpO2: stable & adequate BP & HR: stable & adequate Hydration State: stable & adequate Anesthetic Complications: no major complications apparent
[2020-07-14] MEDS ORDERED: ALUMINUM/MAGNESIUM SUSP 30 ML UDC PO PRN (12:39)
[2020-07-14] MEDS ORDERED: MAGNESIUM HYDROXIDE SUSP 30 ML UDC PO PRN (12:39)
[2020-07-14] MEDS ORDERED: SODIUM CHLORIDE 0.9% 1000ML 1,000 ML IV SCH (12:39)
[2020-07-14] MEDS ORDERED: NALOXONE HCL 0.4 MG/1 ML VIAL/CARP IV PRN (12:39)
[2020-07-14] MEDS ORDERED: DiphenhydrAMINE HCL 50 MG/ML VIAL IV PRN (12:39)
[2020-07-14] MEDS ORDERED: METOCLOPRAMIDE HCL INJ 5 MG/ML 2 ML VIAL IV PRN (12:39)
[2020-07-14] MEDS ORDERED: bisacodyL 10 MG SUPP PR PRN (12:39)
[2020-07-14] MEDS ORDERED: HYDROmorphone INJ 0.5 MG/0.5 ML SYR IV PRN (12:39)
[2020-07-14] MEDS ORDERED: OXYCODONE HCL IR 5 MG TAB (IMMEDIATE RELEASE) PO PRN (12:39)
--- NOTE | 2020-07-14 12:58 | Operative Report ---
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 I attest to the content of the Intraoperative Record and any orders documented therein. Any exceptions are noted below.
[2020-07-14] MEDS: ACETAMINOPHEN 500 MG TAB PO SCH ×2 (13:48→23:15)
[2020-07-14] MEDS: KETOROLAC TROMETHAMINE 15 MG/ML VIAL IV SCH ×2 (13:49→20:29)
[2020-07-14] MEDS ORDERED: ORTHO WARFARIN NOMOGRAM SCH (14:00)
--- NOTE | 2020-07-14 14:12 | Progress Notes ---
DATE: 07/14/2020 Postop check. The patient is seen in bed following her right knee replacement. She is doing well, has no major issues. The spinal is wearing off. She has active dorsi and plantarflexion of the toes and ankle, trace. Has no pain. Wound dressing clean, dry and intact. Calves nontender. Postop x-rays look excellent. ASSESSMENT: Doing well status post right knee replacement. Continue with postoperative care pathway. Discharge to home tomorrow. Outpatient physical therapy to start in a week, visiting nurses.
[2020-07-14] MEDS ORDERED: WARFARIN SOD 5 MG TAB PO SCH (16:00)
[2020-07-14] MEDS: ASCORBIC ACID 500 MG TAB PO SCH (16:07)
[2020-07-14] MEDS: FERROUS GLUCONATE 324 MG TAB PO SCH (16:08)
--- NOTE | 2020-07-14 16:08 | Discharge Summary (DS) ---
CHIEF COMPLAINT: Right knee pain. HISTORY OF PRESENT ILLNESS: Underwent elective right total knee replacement. Hospital course has been uneventful. Neurovascular check is wearing off from the spinal, she has no major issues. Postop x-rays look excellent. Medication reconciliation sheet is completed. PAST MEDICAL HISTORY: Remarkable for cystadenoma of the pancreas, which was benign, degenerative disc disease. Environmental allergies, hypercholesterolemia, hypertension, hypothyroidism, lung nodules, osteoarthritis, prediabetes. PAST SURGICAL HISTORY: Remarkable for pancreatic surgery in 2000, tonsillectomy, wisdom teeth surgery. FAMILY HISTORY: Remarkable for GI cancers in the family. Cardiac disorder, hypertension, ovarian cancer and breast cancer not in the family. REVIEW OF SYSTEMS: Reveals no chest pain, shortness of breath, fever, chills, nausea, vomiting or headache. She feels safe at home. She does not smoke. She did have exposure as a child. ASSESSMENT: Doing well status post right total knee replacement. Plan is to discharge to home tomorrow if she does well tonight. She will follow up in 1 week for outpatient PT.
[2020-07-14] MEDS: CEFAZOLIN 2000MG 2,000 MG/15 ML SYR IV SCH (16:35)
[2020-07-14] MEDS ORDERED: TRANEXAMIC ACID / 0.7% NACL 1,000 MG/100 ML BAG IV SCH (16:45)
[2020-07-14] MEDS: TRIAMTERENE/HCTZ 37.5/25MG TAB PO SCH (20:51)
[2020-07-14] MEDS: DOCUSATE SODIUM 100 MG CAP PO SCH (20:52)
[2020-07-14] MEDS ORDERED: SENNA 8.6 MG TAB PO SCH (21:00)
[2020-07-14] MEDS ORDERED: LOSARTAN POTASSIUM 50 MG TAB PO SCH (21:00)
[2020-07-14] MEDS ORDERED: METOPROLOL SUCC 50MG EXT REL TAB PO SCH (21:00)
[2020-07-15] MEDS: CEFAZOLIN 2000MG 2,000 MG/15 ML SYR IV SCH (01:45)
[2020-07-15] MEDS: KETOROLAC TROMETHAMINE 15 MG/ML VIAL IV SCH ×2 (01:45→08:55)
[2020-07-15] MEDS: ACETAMINOPHEN 500 MG TAB PO SCH (06:09)
[2020-07-15 06:17] LABS: Hematocrit (blood only) 41.4 % (37-47); Mean Corpuscular Hgb Conc 33.8 g/dL (32-36); Mean Corpuscular Volume 94.5 fL (80-100); Mean Platelet Volume 9.7 fL (7.4-10.4); Platelet Count 205 K/uL (130-400); RDW Coefficient of Variation 12.6 % (11.5-14.5); RDW Standard Deviation 43.5 fL (36.4-46.3); Red Blood Count 4.38 M/uL (4.2-5.4); White Blood Count 13.36 K/uL (4.8-10.8)
[2020-07-15 06:28] LABS: INR 1.1 (0.9-1.1); Prothrombin Time 11.9 Seconds (9.0-12.0)
[2020-07-15] MEDS ORDERED: LEVOTHYROXINE SODIUM 100 MCG TABLET PO SCH (06:30)
[2020-07-15 06:49] LABS: BUN Creatinine Ratio 28.4 (10-20); Calcium 8.5 mg/dl (8.5-10.1); Est GFR (African American) 51.1; Est GFR (Non-African American) 44.1; Potassium 3.7 mmol/L (3.5-5.1)
--- NOTE | 2020-07-15 07:11 | Progress Notes ---
DATE: 07/15/2020 SUBJECTIVE: Postop check day #1 status post right total knee replacement. The patient is doing well, has no issues. She is dressed in her clothes. OBJECTIVE: Vital signs are stable. She is afebrile. Neurovascular check, femoral sciatic nerve is normal. Hematocrit stable at 41. INR is 1.1. ASSESSMENT AND PLAN: Doing well. Discharge to home today. Coumadin dose per nomogram. Advised concerning not getting wound wet.
[2020-07-15] MEDS ORDERED: WARFARIN SOD 5 MG TAB PO ONE (07:45)
[2020-07-15] MEDS ORDERED: dexAMETHasone 10 MG in SYRINGE 0 ML IV SCH (08:00)
[2020-07-15] MEDS: TRIAMTERENE/HCTZ 37.5/25MG TAB PO SCH (08:53)
[2020-07-15] MEDS: ASCORBIC ACID 500 MG TAB PO SCH (08:54)
[2020-07-15] MEDS: FERROUS GLUCONATE 324 MG TAB PO SCH (08:54)
[2020-07-15] MEDS: DOCUSATE SODIUM 100 MG CAP PO SCH (08:54)
[2020-07-15] MEDS ORDERED: MULTIVITAMIN TAB PO SCH (09:00)
== END 2020-07-15 12:35 | disposition home health service (06) ==
LOC: 3E 06:44 → ASU 06:44